=== PATIENT | female | born 1975 | race Two or more races ===

== ENCOUNTER 2018-09-04 08:07 | Emergency (ER) | payer SELFPAY ==
[~2018-09-04] VITALS: Ht 157.5 cm; Wt 90.7 kg
[2018-09-04 08:12] VITALS: BP 116/68
[2018-09-04] MEDS ORDERED: traMADol HCL 50 MG TAB PO ONE (08:45)
== END 2018-09-04 09:03 | disposition home or self-care (01) ==
LOC: ER 08:12
DX: K08.89 Other specified disorders of teeth and supporting structures (principal); F11.10 Opioid abuse, uncomplicated; G89.29 Other chronic pain; M54.5 Low back pain; J45.909 Unspecified asthma, uncomplicated; F17.210 Nicotine dependence, cigarettes, uncomplicated